=== PATIENT | male | born 1990 | race Caucasian/White ===

== ENCOUNTER 2017-08-06 23:43 | Emergency (ER) | payer OTHER | END 2017-08-07 01:40 | disposition home or self-care (01) | LOC: M ED 23:43 | DX: S56.212A Strain of other flexor muscle, fascia and tendon at forearm level, left arm, initial encounter (principal); F17.200 Nicotine dependence, unspecified, uncomplicated; X50.0XXA Overexertion from strenuous movement or load, initial encounter; Y92.89 Other specified places as the place of occurrence of the external cause; Y93.89 Activity, other specified; Y99.0 Civilian activity done for income or pay | CPT/HCPCS: 29125 ==

== ENCOUNTER 2018-07-14 13:28 | Emergency (ER) | payer OTHER, SELFPAY ==
[~2018-07-14] VITALS: Ht 175.3 cm; Wt 86.4 kg
[2018-07-14 13:28] VITALS: BP 148/100
[2018-07-14] MEDS ORDERED: LIDOCAINE 1% MDV 20ML VIAL IM ONE (14:30)
[2018-07-14] MEDS ORDERED: IBUP80TA PO (15:00)
[2018-07-14] MEDS ORDERED: IBUPROFEN 800 MG TAB PO ONE (15:00)
[2018-07-14] MEDS ORDERED: KEFL500C17 PO (15:00)
[2018-07-14] MEDS ORDERED: CEPHALEXIN 500 MG CAP PO ONE (15:00)
== END 2018-07-14 15:10 | disposition home or self-care (01) ==
LOC: M ED 13:28
DX: S61.211A Laceration without foreign body of left index finger without damage to nail, initial encounter (principal); W26.0XXA Contact with knife, initial encounter; Y92.89 Other specified places as the place of occurrence of the external cause; Y99.0 Civilian activity done for income or pay

== ENCOUNTER 2020-05-12 20:23 | Emergency (ER) | payer SELFPAY ==
[~2020-05-12] VITALS: Ht 175.3 cm; Wt 84.1 kg
[~2020-05-12 20:23] MED LIST: IBUP80TA PO; KEFL500C17 PO
[2020-05-12 20:24] VITALS: BP 134/78
[2020-05-12] MEDS ORDERED: FLUORESCEIN OPHTH 1 MG STRIP OU ONE (21:15)
[2020-05-12] MEDS ORDERED: TETRACAINE 0.5% OPHTH SOLN 4ML OU ONE (21:15)
[2020-05-12] MEDS ORDERED: CIPR0.3S6 OD (21:30)
[2020-05-12] MEDS ORDERED: CIPROFLOXACIN 0.3% OPHTH SOLN 2.5ML OD ONE (21:30)
== END 2020-05-12 21:41 | disposition home or self-care (01) ==
LOC: M ED 20:23
DX: T15.01XA Foreign body in cornea, right eye, initial encounter (principal); Y92.89 Other specified places as the place of occurrence of the external cause; Z87.891 Personal history of nicotine dependence

== ENCOUNTER 2025-04-22 12:03 | Emergency (ER) | payer SELFPAY ==
[~2025-04-22] VITALS: Ht 175.3 cm; Wt 89.7 kg
[~2025-04-22 12:03] MED LIST changes: +CIPR0.3S37 OD
[2025-04-22] MEDS ORDERED: EPIP0.3I2 IM ×2 (12:12→14:26)
[2025-04-22] MEDS: FAMOTIDINE 20 MG/2 ML VIAL IVP ONE (12:29)
[2025-04-22] MEDS: diphenhydrAMINE 50 MG/ML VIAL IV ONE (12:30)
[2025-04-22] MEDS ORDERED: PRED20TA PO (14:26)
[2025-04-22 14:30] VITALS: BP 137/97; O2SAT 99
[2025-04-22 14:45] VITALS: TEMP 97.3
[2025-04-23] MEDS ORDERED: CEPH500C PO (12:09)
== END 2025-04-22 14:48 | disposition home or self-care (01) ==
LOC: M ED 12:03
DX: T63.441A Toxic effect of venom of bees, accidental (unintentional), initial encounter (principal); Z91.030 Bee allergy status; Z79.52 Long term (current) use of systemic steroids; Z79.899 Other long term (current) drug therapy
CPT/HCPCS: 93041; 94760; 96374; 96375; 99285; J1200; J1308; J2919

== ENCOUNTER 2025-04-23 09:35 | Emergency (ER) | payer SELFPAY ==
[~2025-04-23 09:35] MED LIST changes: +EPIP0.3I2 IM; +PRED20TA PO
[2025-04-23] MEDS: LIDOCAINE 2% MDV 20 ML VIAL SC ONE (11:15)
[2025-04-23] MEDS: IBUPROFEN 600 MG TAB PO ONE (11:22)
[2025-04-23 11:30] VITALS: BP 136/84; TEMP 98.6; O2SAT 98
[2025-04-23] MEDS ORDERED: CEPH500C PO (12:09)
== END 2025-04-23 12:14 | disposition home or self-care (01) ==
LOC: M ED 09:35
DX: S61.213A Laceration without foreign body of left middle finger without damage to nail, initial encounter (principal); W26.8XXA Contact with other sharp object(s), not elsewhere classified, initial encounter; Y92.009 Unspecified place in unspecified non-institutional (private) residence as the place of occurrence of the external cause; Y93.89 Activity, other specified; Y99.9 Unspecified external cause status; Z79.52 Long term (current) use of systemic steroids; Z79.2 Long term (current) use of antibiotics; Z91.030 Bee allergy status